=== PATIENT | female | born 1970 | race Caucasian/White ===

== ENCOUNTER 2017-12-15 13:05 | Emergency (ER) | payer MEDICAID ==
[~2017-12-15] VITALS: Ht 4948.4 cm; Wt 66.0 kg
[~2017-12-15 13:05] MED LIST: CHLO118M PO; EPIN0.3A3 IM; EST1T PO; HYDR1TAB PO; LEVA15HF4 IH; LEVO200T43 PO; LORA-512 PO; MONT10TA21 PO; TOP25T PO; TRAM50TA2 PO
[2017-12-15 13:11] VITALS: BP 145/85
[2017-12-15] MEDS ORDERED: ketorolac trometh. 30mg/ml inj. IM ONE (13:40)
== END 2017-12-15 14:00 | disposition home or self-care (01) ==
LOC: ER 13:06
DX: S46.911A Strain of unspecified muscle, fascia and tendon at shoulder and upper arm level, right arm, initial encounter (principal); G43.909 Migraine, unspecified, not intractable, without status migrainosus; J45.909 Unspecified asthma, uncomplicated; E03.9 Hypothyroidism, unspecified; G89.29 Other chronic pain; F12.10 Cannabis abuse, uncomplicated; Z56.0 Unemployment, unspecified; Z91.030 Bee allergy status; Z90.49 Acquired absence of other specified parts of digestive tract; Z91.040 Latex allergy status; Z90.710 Acquired absence of both cervix and uterus; Z98.890 Other specified postprocedural states; Z79.899 Other long term (current) drug therapy; Z87.891 Personal history of nicotine dependence; W22.8XXA Striking against or struck by other objects, initial encounter; Y93.89 Activity, other specified; Y92.89 Other specified places as the place of occurrence of the external cause; Y99.8 Other external cause status
CPT/HCPCS: 73030; 96372; 99284; A4565; J1885; L0172

== ENCOUNTER 2019-02-21 09:18 | Emergency (ER) | payer MEDICAID ==
[~2019-02-21] VITALS: Ht 149.9 cm; Wt 69.6 kg
[2019-02-21] MEDS ORDERED: diphenhydrAMINE 50 mg/ml inj IV ONE (10:25)
[2019-02-21] MEDS ORDERED: ketorolac tromethamine 15mg/ml inj. IV ONE (10:25)
[2019-02-21] MEDS ORDERED: proCHLORperazine 10 MG/2 ml inj IV ONE (10:25)
[2019-02-21] MEDS ORDERED: normal saline 1000ml 1,000 ML IV ONE (10:25)
[2019-02-21 12:19] VITALS: BP 133/76
== END 2019-02-21 12:23 | disposition home or self-care (01) ==
LOC: ER 09:19
DX: G43.909 Migraine, unspecified, not intractable, without status migrainosus (principal); R11.2 Nausea with vomiting, unspecified; J45.909 Unspecified asthma, uncomplicated; E03.9 Hypothyroidism, unspecified; G89.29 Other chronic pain; F12.90 Cannabis use, unspecified, uncomplicated; Z90.49 Acquired absence of other specified parts of digestive tract; Z90.710 Acquired absence of both cervix and uterus; Z91.040 Latex allergy status; Z79.899 Other long term (current) drug therapy; Z56.0 Unemployment, unspecified
CPT/HCPCS: 96361; 96374; 96375; 99283; J0780; J1200; J1885; J7030

== ENCOUNTER 2020-01-30 06:50 | Emergency (ER) | payer MEDICAID ==
[~2020-01-30] VITALS: Ht 149.9 cm; Wt 70.0 kg
[2020-01-30] MEDS ORDERED: ketorolac trometh inj. 60 MG/2 ML VIAL IM ONE (07:30)
[2020-01-30 07:37] VITALS: BP 98/71
--- NOTE | 2020-01-30 07:58 | NUR ---
Alejandrina RN: patient back from Xray.
== END 2020-01-30 08:35 | disposition home or self-care (01) ==
LOC: ER 06:50
DX: S93.601A Unspecified sprain of right foot, initial encounter (principal); S80.01XA Contusion of right knee, initial encounter; S70.01XA Contusion of right hip, initial encounter; G43.909 Migraine, unspecified, not intractable, without status migrainosus; J45.909 Unspecified asthma, uncomplicated; E03.9 Hypothyroidism, unspecified; G89.29 Other chronic pain; F17.200 Nicotine dependence, unspecified, uncomplicated; F10.10 Alcohol abuse, uncomplicated; F12.90 Cannabis use, unspecified, uncomplicated; Z85.9 Personal history of malignant neoplasm, unspecified; Z90.49 Acquired absence of other specified parts of digestive tract; Z90.710 Acquired absence of both cervix and uterus; Z98.890 Other specified postprocedural states; Z56.0 Unemployment, unspecified; Z91.040 Latex allergy status; Z79.899 Other long term (current) drug therapy; W10.9XXA Fall (on) (from) unspecified stairs and steps, initial encounter; Y93.89 Activity, other specified; Y92.89 Other specified places as the place of occurrence of the external cause; Y99.8 Other external cause status
CPT/HCPCS: 73502; 73560; 73630; 96372; 99284; J1885